=== PATIENT | female | born 1970 | race Caucasian/White ===

== ENCOUNTER 2017-07-10 22:45 | Emergency (ER) | payer OTHER ==
[~2017-07-10] VITALS: Ht 170.2 cm; Wt 143.3 kg
[~2017-07-10 22:45] MED LIST: GLUC10TA3 PO; GLUCTAB PO; LISI40TA PO; METO25CR PO; SIMV20TA PO
[2017-07-10 22:50] VITALS: BP 183/121; PULSE 86; RESP 18; TEMP 98.6; O2SAT 98
--- NOTE | 2017-07-10 23:14 | PD ---
HPI Chief Complaint: Complaint Time Seen by Provider: 23:03 Travel History International Travel<30 days: No Contact w/Intl Traveler<30days: No History of Present Illness HPI 46yo F with DM here with multiple complaints. Pt said she has been having vaginal itching for a few days and call her doctor and took diflucan 2 days ago. Said it did help but still has some itching. Also with dysuria and increased urinary frequency. Said she is now having bilateral back pain that is more on left. Pain is worst with movement. Denies any fever, chest pain, sob, n/v, abdominal pain, IVDA, fall, incontinence. Pt has chronic back pain and took her hydrocodone but it did not help. PFSH Past Medical History High Cholesterol: Yes Diabetes: Yes Diminished Hearing: No Hypertension: Yes Tubal Ligation: Yes Past Surgical History Appendectomy: Yes Section: Yes (X2) Cholecystectomy: Yes Social History Alcohol Use: No Tobacco Use: No Substance Use: No Allergies-Medications (Allergen,Severity, Reaction): Coded Allergies: No Known Allergies (Unverified , 11/30/13) Reported Meds & Prescriptions Reported Meds & Active Scripts Active Ibuprofen 800 Mg Tab 800 Mg PO TID Reported Farxiga (Dapagliflozin) 5 Mg Tab 5 Mg PO DAILY Losartan (Losartan Potassium) 25 Mg Tab 12.5 Mg PO DAILY Metoprolol Succinate ER 24 HR (Metoprolol Succinate) 25 Mg Tab 12.5 Mg PO DAILY Metformin (Metformin HCl) 1,000 Mg Tab 1,000 Mg PO BIDPC Glipizide 10 Mg Tab 10 Mg PO DAILY Take 30 minutes before a meal Review of Systems Except as stated in HPI: all other systems reviewed are Neg Physical Exam Narrative GENERAL: 46yo F in mild distress. SKIN: Focused skin assessment warm/dry. HEAD: Atraumatic. Normocephalic. EYES: Pupils equal and round. No scleral icterus. No injection or drainage. ENT: No nasal bleeding or discharge. Mucous membranes pink and moist. NECK: Trachea midline. No JVD. CARDIOVASCULAR: Regular rate and rhythm. No murmur appreciated. RESPIRATORY: No accessory muscle use. Clear to auscultation. Breath sounds equal bilaterally. GASTROINTESTINAL: Abdomen soft, non-tender, nondistended. No rebound tenderness or guarding. PELVIC: Small white discharge. No CMT or adnexal tenderness bilaterally. BACK: No midline ttp. +CVA left side. MUSCULOSKELETAL: No obvious deformities. No clubbing. No cyanosis. No edema. NEUROLOGICAL: Awake and alert. No obvious cranial nerve deficits. Motor grossly within normal limits. Normal speech. Sensation intact. PSYCHIATRIC: Appropriate mood and affect; insight and judgment normal. Data Data Last Documented VS Vital Signs Date Time Temp Pulse Resp B/P (MAP) Pulse Ox O2 Delivery O2 Flow Rate FiO2 07/11/17 02:13 84 16 128/77 (94) 99 07/11/17 00:14 Room Air 07/10/17 22:50 98.6 Orders Orders Urinalysis - C+S If Indicated (07/10/17 23:03) Complete Blood Count With Diff (07/10/17 23:09) Basic Metabolic Panel (Bmp) (07/10/17 23:09) Gc And Chlamydia Pcr (07/10/17 23:09) Wet Prep Profile (07/10/17 23:09) Ketorolac Inj (Toradol Inj) (07/10/17 23:15) Ketorolac Inj (Toradol Inj) (07/11/17 00:45) Ed Discharge Order (07/11/17 02:07) Labs Laboratory Tests Test 07/10/17 23:25 07/10/17 23:40 White Blood Count 12.6 TH/MM3 Red Blood Count 4.30 MIL/MM3 Hemoglobin 13.4 GM/DL Hematocrit 35.4 % Mean Corpuscular Volume 82.3 FL Mean Corpuscular Hemoglobin 31.1 PG Mean Corpuscular Hemoglobin Concent 37.7 % Red Cell Distribution Width 14.6 % Platelet Count 98 TH/MM3 Mean Platelet Volume 8.7 FL Neutrophils (%) (Auto) 68.2 % Lymphocytes (%) (Auto) 26.9 % Monocytes (%) (Auto) 3.4 % Eosinophils (%) (Auto) 1.1 % Basophils (%) (Auto) 0.4 % Neutrophils # (Auto) 8.6 TH/MM3 Lymphocytes # (Auto) 3.4 TH/MM3 Monocytes # (Auto) 0.4 TH/MM3 Eosinophils # (Auto) 0.1 TH/MM3 Basophils # (Auto) 0.1 TH/MM3 CBC Comment DIFF FINAL Differential Comment Hematology Comments Urine Color y Urine Turbidity c Urine pH 6.5 Urine Specific [place] GREATER THAN 1.035 Urine Protein NEG mg/dL Urine Glucose (UA) 1000 OR GREATER mg/dL Urine Ketones NEG mg/dL Urine Occult Blood NEG Urine Nitrite NEG Urine Bilirubin NEG Urine Leukocyte Esterase NEG Urine RBC 0-2 /hpf Urine WBC 0-2 /hpf Urine Squamous Epithelial Cells 0-5 /hpf Urine Bacteria NONE /hpf Microscopic Urinalysis Comment CULT NOT INDICATED Blood Urea Nitrogen 10 MG/DL Creatinine 0.69 MG/DL Random Glucose 226 MG/DL Calcium Level 8.7 MG/DL Sodium Level 139 MEQ/L Potassium Level 4.0 MEQ/L Chloride Level 105 MEQ/L Carbon Dioxide Level 26.9 MEQ/L Anion Gap 7 MEQ/L Estimat Glomerular Filtration Rate 92 ML/MIN Clue Cells (Wet Prep) NONE SEEN Vaginal Trichomonas (Wet Prep) NONE SEEN Vaginal Yeast (Wet Prep) NONE SEEN Chlamydia trachomatis DNA (PCR) NOT DETECTED Neisseria gonorrhoeae DNA (PCR) NOT DETECTED MDM Medical Decision Making Medical Screen Exam Complete: Yes Emergency Medical Condition: Yes Differential Diagnosis Pyelonephritis vs. musculoskeletal pain vs. vaginal candidiasis Narrative Course 46yo F with urinary complaints and back pain. Labs, wet prep and UA still pending. Pt given toradol. Sign out to Dr. Keller to follow up and disposition. Diagnosis Primary Impression: Back pain Qualified Codes: M54.5 - Low back pain Scripts Ibuprofen (Ibuprofen) 800 Mg Tab 800 MG PO TID, #44 TAB 0 Refills Prov: Roni Keller MD 07/11/17 Juliet Malagon DO Jul 10, 2017 23:14
[2017-07-10] MEDS ORDERED: KETOROLAC TROMETHAMINE 30 MG/ML (IVP) VIAL IV PUSH ONE (23:15)
[2017-07-10] MEDS ORDERED: LOSA25TA PO (23:17)
[2017-07-10] MEDS ORDERED: DAPA1TAB PO (23:17)
[2017-07-10] MEDS ORDERED: GLIP10TA6 PO (23:17)
[2017-07-10] MEDS ORDERED: METF1000 PO (23:17)
[2017-07-10] MEDS ORDERED: METO1TAB42 PO (23:17)
[2017-07-10 23:45] LABS: BILIRUBIN, URINE NEG (NEG); BLOOD, URINE NEG (NEG); GLUCOSE,URINE 1000 OR GREATER mg/dL (NEG); KETONE, URINE NEG (NEG); NITRITE,URINE NEG (NEG); PH, URINE 6.5 (5.0-8.5); URINE LEUKOCYTE ESTERASE NEG (NEG)
[2017-07-10 23:48] LABS: AUTOMATED NEUTROPHIL # 8.6 TH/MM3 (1.8-7.7); BASOPHIL # 0.1 TH/MM3 (0-0.2); BASOPHIL % 0.4 % (0.0-2.0); EOSINOPHIL # 0.1 TH/MM3 (0-0.4); EOSINOPHIL % 1.1 % (0.0-4.0); HEMATOCRIT 35.4 % (35.0-46.0); HEMOGLOBIN 13.4 GM/DL (11.6-15.3); LYMPH % 26.9 % (9.0-44.0); LYMPHOCYTE # 3.4 TH/MM3 (1.0-4.8); MEAN CELL VOLUME 82.3 FL (80.0-100.0); MEAN CORPUSCULAR HEMOGLOBIN 31.1 PG (27.0-34.0); MEAN PLATELET VOLUME 8.7 FL (7.0-11.0); MONO % 3.4 % (0.0-8.0); MONOCYTE # 0.4 TH/MM3 (0-0.9); NEUT % 68.2 % (16.0-70.0); PLATELET COUNT 98 TH/MM3 (150-450); RED CELL DISTRIBUTION WIDTH 14.6 % (11.6-17.2); WHITE BLOOD COUNT 12.6 TH/MM3 (4.0-11.0)
[2017-07-10 23:51] LABS: MEAN CORPUSCULAR HGB CONC 37.7 % (32.0-36.0)
[2017-07-11 00:01] LABS: BICARBONATE 26.9 MEQ/L (21.0-32.0); CALCIUM 8.7 MG/DL (8.5-10.1)
[2017-07-11 00:04] LABS: CREATININE 0.69 MG/DL (0.50-1.00); URINE COLOR y (YELLW/STRAW)
[2017-07-11 00:05] LABS: RBC, URINE 0-2 /hpf (0-3); SQUAMOUS EPITHELIAL CELL URINE 0-5 /hpf (0-5); WBC, URINE 0-2 /hpf (0-5)
[2017-07-11 00:14] VITALS: BP 118/72; PULSE 84; RESP 16; O2SAT 99
[2017-07-11] MEDS ORDERED: KETOROLAC TROMETHAMINE 60 MG/2 ML (IM) VIAL IM ONE (00:45)
[2017-07-11] MEDS ORDERED: IBUP1TAB7 PO (02:04)
--- NOTE | 2017-07-11 02:07 | PD ---
Physical Exam Time Seen by Provider: 01:59 Narrative The patient is a 46-year-old female that was transferred to [place] by Dr. Malagon. I am to check the results of the blood and urine that she ordered. The patient states her main problem is back pain. She does have pain issues and is followed by pain management for pain. Data Data Last Documented VS Vital Signs Date Time Temp Pulse Resp B/P (MAP) Pulse Ox O2 Delivery O2 Flow Rate FiO2 07/11/17 00:14 84 16 118/72 (87) 99 Room Air 07/10/17 22:50 98.6 Orders Orders Urinalysis - C+S If Indicated (07/10/17 23:03) Complete Blood Count With Diff (07/10/17 23:09) Basic Metabolic Panel (Bmp) (07/10/17 23:09) Gc And Chlamydia Pcr (07/10/17 23:09) Wet Prep Profile (07/10/17 23:09) Ketorolac Inj (Toradol Inj) (07/10/17 23:15) Ketorolac Inj (Toradol Inj) (07/11/17 00:45) Labs Laboratory Tests Test 07/10/17 23:25 07/10/17 23:40 White Blood Count 12.6 TH/MM3 Red Blood Count 4.30 MIL/MM3 Hemoglobin 13.4 GM/DL Hematocrit 35.4 % Mean Corpuscular Volume 82.3 FL Mean Corpuscular Hemoglobin 31.1 PG Mean Corpuscular Hemoglobin Concent 37.7 % Red Cell Distribution Width 14.6 % Platelet Count 98 TH/MM3 Mean Platelet Volume 8.7 FL Neutrophils (%) (Auto) 68.2 % Lymphocytes (%) (Auto) 26.9 % Monocytes (%) (Auto) 3.4 % Eosinophils (%) (Auto) 1.1 % Basophils (%) (Auto) 0.4 % Neutrophils # (Auto) 8.6 TH/MM3 Lymphocytes # (Auto) 3.4 TH/MM3 Monocytes # (Auto) 0.4 TH/MM3 Eosinophils # (Auto) 0.1 TH/MM3 Basophils # (Auto) 0.1 TH/MM3 CBC Comment DIFF FINAL Differential Comment Hematology Comments Urine Color y Urine Turbidity c Urine pH 6.5 Urine Specific [place] GREATER THAN 1.035 Urine Protein NEG mg/dL Urine Glucose (UA) 1000 OR GREATER mg/dL Urine Ketones NEG mg/dL Urine Occult Blood NEG Urine Nitrite NEG Urine Bilirubin NEG Urine Leukocyte Esterase NEG Urine RBC 0-2 /hpf Urine WBC 0-2 /hpf Urine Squamous Epithelial Cells 0-5 /hpf Urine Bacteria NONE /hpf Microscopic Urinalysis Comment CULT NOT INDICATED Blood Urea Nitrogen 10 MG/DL Creatinine 0.69 MG/DL Random Glucose 226 MG/DL Calcium Level 8.7 MG/DL Sodium Level 139 MEQ/L Potassium Level 4.0 MEQ/L Chloride Level 105 MEQ/L Carbon Dioxide Level 26.9 MEQ/L Anion Gap 7 MEQ/L Estimat Glomerular Filtration Rate 92 ML/MIN Clue Cells (Wet Prep) NONE SEEN Vaginal Trichomonas (Wet Prep) NONE SEEN Vaginal Yeast (Wet Prep) NONE SEEN MDM Medical Record Reviewed: Yes Supervised Visit with ABHIJEET: No Interpretation(s) The CBC shows a white count of 12,600 with a platelet count of 98,000 but is otherwise unremarkable. The basic metabolic profile shows a glucose of 226 but is otherwise unremarkable. The wet prep is negative for clue cells, Trichomonas and vaginal yeast. The urine shows greater than 1.035 specific gravity, 1000 or greater glucose but is otherwise normal and culture is not indicated. Differential Diagnosis The patient has a history of diabetes and the elevated blood sugar is expected. On physical exam the patient has tenderness over the back bilaterally, musculoskeletal tenderness. This does not appear as flank tenderness or renal tenderness. Impression: Musculoskeletal pain Plan: The patient will be given Motrin 800 mg 3 times daily and she should follow-up with her pain management physician. Narrative Course The patient was given 60 mg of Motrin IM and feels much better at this time. The time is now 0200. She will be given Motrin 800 mg 3 times daily and follow- up with her pain management physician. Diagnosis Primary Impression: Back pain Qualified Codes: M54.5 - Low back pain Additional Instruction: Take the Motrin regularly, 800 mg 3 times daily. Follow-up with your pain management physician as soon as possible. Drink plenty of liquids when you take the Motrin. Med/Other Pt SpecificInfo: Prescription(s) given Scripts Ibuprofen (Ibuprofen) 800 Mg Tab 800 MG PO TID, #44 TAB 0 Refills Prov: Roni Keller MD 07/11/17 Disposition: DISCHARGE HOME Condition: Stable Roni Keller MD Jul 11, 2017 02:07
[2017-07-11 02:13] VITALS: BP 128/77
== END 2017-07-11 02:14 | disposition home or self-care (01) ==
LOC: PHED 22:45
DX: M54.5 Low back pain (principal); G89.29 Other chronic pain; E11.9 Type 2 diabetes mellitus without complications; I10 Essential (primary) hypertension; Z79.84 Long term (current) use of oral hypoglycemic drugs
CPT/HCPCS: 80048; 81001; 85025; 87210; 87491; 87591; 96372; 99284; J1885